=== PATIENT | male | born 1995 ===

== ENCOUNTER 2018-09-26 19:49 | Emergency (ER) | payer BC ==
[2018-09-26] MEDS ORDERED: Ketorolac INJ* 30 MG/ML 1 ML VIAL IM ONE (20:47)
[2018-09-26] MEDS ORDERED: Lidocaine PATCH 5%* 1 PATCH TRANSDERM SCH (21:00)
--- NOTE | 2018-09-26 21:16 | ED ---
Back Pain - HPI Summary HPI Summary: 23 year old male presents with back pain today. He states he had this pain a week ago. He states this is mid back. it rates the sides of back. Denies any urinary symptoms. denies any loss of bowel or bladder or saddle anesthesia. No fevers. He still able to ambulate. He states he gets twinges extreme pain. Pain is worsened tries to move. No nausea vomiting. No chest pain. No shortness breath. No abdominal pain. He tried smoking marijuana for the pain. - History of Current Complaint Chief Complaint: EDBackInjuryPain Stated Complaint: BACK PAIN Time Seen by Provider: 09/26/18 20:20 Pain Intensity: 9 - Allergies/Home Medications Allergies/Adverse Reactions: Allergies Allergy/AdvReac Type Severity Reaction Status Date / Time No Known Allergies Allergy Verified 09/26/18 20:04 PMH/Surg Hx/FS Hx/Imm Hx Endocrine/Hematology History: Denies: Hx Diabetes, Hx Thyroid Disease Cardiovascular History: Denies: Hx Hypertension, Hx Pacemaker/ICD Respiratory History: Denies: Hx Asthma, Hx Chronic Obstructive Pulmonary Disease (COPD) GI History: Denies: Hx Ulcer History: Denies: Hx Renal Disease Sensory History: Denies: Hx Hearing Aid Neurological History: Reports: Other Neuro Impairments/Disorders - SCIATICA Psychiatric History: Denies: Hx Panic Disorder - Surgical History Surgery Procedure, Year, and Place: LUMBAR SURGERY (DISCECTOMY) 12/2011. 2 FINGERS WITH PINNING 2008 AND REMOVED Infectious Disease History: No Infectious Disease History: Denies: Hx Clostridium Difficile, Hx Hepatitis, Hx Human Immunodeficiency Virus (HIV), Traveled Outside the [place] in Last 30 Days Comment Only: History Other Infectious Disease - MOM has hep c - Family History Known Family History: Positive: Non-Contributory - Social History Alcohol Use: Occasionally Substance Use Type: Reports: Marijuana Smoking Status (MU): Never Smoked Tobacco Review of Systems Negative: Fever Negative: Chest Pain Negative: Shortness Of Breath Positive: Myalgia - back pain All Other Systems Reviewed And Are Negative: Yes Physical Exam Triage Information Reviewed: Yes Vital Signs On Initial Exam: Initial Vitals Temp Pulse Resp BP Pulse Ox 98.6 F 73 16 139/56 100 09/26/18 20:02 09/26/18 20:02 09/26/18 20:02 09/26/18 20:02 09/26/18 20:02 Vital Signs Reviewed: Yes Appearance: Positive: Well-Appearing Skin: Positive: Warm, Dry Head/Face: Positive: Normal Head/Face Inspection Eyes: Positive: Normal, Conjunctiva Clear ENT: Positive: Pharynx normal Respiratory/Lung Sounds: Positive: Clear to Auscultation, Breath Sounds Present Cardiovascular: Positive: Normal, RRR Abdomen Description: Positive: Nontender, Soft Bowel Sounds: Positive: Present Musculoskeletal: Positive: Limited @ - back with pain, Other - tenderness T10- T12. neg SLR, good pulses, sensation grossly intact Neurological: Positive: Normal, Normal Gait Psychiatric: Positive: Normal Diagnostics - Vital Signs Vital Signs Temp Pulse Resp BP Pulse Ox 09/26/18 20:02 98.6 F 73 16 139/56 100 - Laboratory Lab Statement: Any lab studies that have been ordered have been reviewed, and results considered in the medical decision making process. Re-Evaluation - Re-Evaluation First Eval Re-Evaluation Time: 21:34 Change: Improved Comment: feeling better after lidoderm and toradol Back Pain Course/Dx - Course Course Of Treatment: 23 year old male presents with back pain today. He states he had this pain a week ago. He states this is mid back. it rates the sides of back. Denies any urinary symptoms. denies any loss of bowel or bladder or saddle anesthesia. No fevers. He still able to ambulate. He states he gets twinges extreme pain. Pain is worsened tries to move. No nausea vomiting. No chest pain. No shortness breath. No abdominal pain. He tried smoking marijuana for the pain. On exam tenderness center T10 through T12. Lungs clear to auscultation. Neurovascular intact. thoracic x-ray read by me as normal. Gave Toradol feeling better. We'll prescribe Flexeril for pain. Patient understands agrees with plan. - Diagnoses Differential Diagnosis/HQI/PQRI: Positive: Fracture, Herniated Disc, Strain Provider Diagnoses: Thoracic back pain Discharge - Sign-Out/Discharge Documenting (check all that apply): Patient Departure - Discharge Plan Condition: Good Disposition: HOME Prescriptions: Cyclobenzaprine TAB* [Flexeril 10 MG TAB*] 10 mg PO TID PRN #15 tab PRN Reason: Pain Lidocaine PATCH 5%* [Lidoderm 5% Patch*] 1 patch TRANSDERM DAILY #5 patch Patient Education Materials: Back Pain (ED) Forms: *Work Release Referrals: Dinorah Kessler MD [Primary Care Provider] - Additional Instructions: Take muscle relaxers three times a day Apply lidocaine patches to area for up to 12 hours in one 24 hour period Use ibuprofen or Tylenol for pain every 6 hours ice/heat area, move as much as possible Follow up with primary within 5 days Return to ED if develop any new or worsening symptoms - Billing Disposition and Condition Condition: GOOD Disposition: Home
[2018-09-26] MEDS ORDERED: Cyclobenzaprine TAB* 10 MG PO ONE (21:20)
[2018-09-26 21:45] VITALS: BP 132/76
[2018-09-27] MEDS ORDERED: Lidocaine Patch REMOVE* 1 NOTE MISC PATCH OFF SCH (09:00)
== END 2018-09-26 21:42 | disposition home or self-care (01) ==
LOC: ED 19:49
DX: M54.9 Dorsalgia, unspecified (principal)
CPT/HCPCS: 72070; 96372; 99283; A9270-GY; J1885